=== PATIENT | female | born 1995 | race Caucasian/White ===

== ENCOUNTER 2017-03-15 23:21 | Emergency (ER) | payer MEDICAID ==
[~2017-03-15] VITALS: Ht 167.6 cm; Wt 109.0 kg
[2017-03-16] MEDS ORDERED: ACETAMINOPHEN 325 MG TABLET PO ONE (01:15)
[2017-03-16 02:59] VITALS: BP 119/75
== END 2017-03-16 03:01 | disposition home or self-care (01) ==
LOC: EMS 23:23
DX: S66.912A Strain of unspecified muscle, fascia and tendon at wrist and hand level, left hand, initial encounter (principal); X58.XXXA Exposure to other specified factors, initial encounter; Y93.89 Activity, other specified; Y92.89 Other specified places as the place of occurrence of the external cause; Y99.8 Other external cause status
CPT/HCPCS: 81025; 99284